=== PATIENT | male | born 1995 | race Caucasian/White ===

== ENCOUNTER 2019-11-07 14:23 | Emergency (ER) | payer MEDICAID, SELFPAY ==
[2019-11-07 14:24] VITALS: BP 148/79; PULSE 93; RESP 20; TEMP 36.8; O2SAT 100; BMI 21.3
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
[2019-11-07] MEDS: Diphth,Pertuss(Acell),Tet Vac 0.5 ML Vial IM (15:44)
[2019-11-07 15:54] VITALS: BP 129/78; PULSE 69; RESP 18; O2SAT 100
[2019-11-07 16:00] VITALS: BP 123/71; PULSE 69; RESP 18; O2SAT 100
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
--- NOTE | 2019-11-07 16:31 | ED.DEP ---
ED Disposition - Plan for ED Patient: Instructions: ED Fx Nose W Lac Skin Glue Prescriptions: Naproxen [Naprosyn] 500 mg PO BID PRN #20 tab Prescription Printed Referrals: Leo Foote MD [STAFF PHYSICIAN] -
== END 2019-11-07 17:13 | disposition home or self-care (01) ==
PROVIDERS: Emergency Provider Emergency Medicine
DX: S06.0X0A Concussion without loss of consciousness, initial encounter (principal); S02.2XXA Fracture of nasal bones, initial encounter for closed fracture; S05.42XA Penetrating wound of orbit with or without foreign body, left eye, initial encounter; S93.401A Sprain of unspecified ligament of right ankle, initial encounter; Z23 Encounter for immunization; V89.2XXA Person injured in unspecified motor-vehicle accident, traffic, initial encounter; Y93.9 Activity, unspecified; Y92.9 Unspecified place or not applicable; Y99.9 Unspecified external cause status; Z72.0 Tobacco use; Z79.899 Other long term (current) drug therapy
CPT/HCPCS: 12013; 70450; 70486; 72125; 73610; 90471; 90715; 99285; A4216